=== PATIENT | male | born 1955 | race African-American/Black ===

== ENCOUNTER 2018-10-02 12:08 | Outpatient (CLI) | payer BC ==
[2018-10-02 12:31] LABS: #Basophils 0.1 thou/uL (0.0-0.2); #Eosinphils 0.1 thou/uL (0.0-0.7); #Lymphocytes 1.8 thou/uL (1.20-3.40); #Monocytes 0.6 thou/uL (0.11-0.59); #Neutrophils 5.4 thou/uL (1.40-6.50); %Eosinophils 1.1 % (0.0-10.0); %Lymphocytes 22.5 % (21.0-51.0); %Monocytes 7.3 % (0.0-10.0); %Neutrophils 68.1 % (42.0-75.0); Hemoglobin 12.6 g/dL (14.0-18.0); Mean Corpuscular HGB CONC 32.1 g/dL (32.0-36.0); Mean Corpuscular Hemoglobin 29.2 pg (27.0-31.0); Mean Platelet Volume 6.9 fL (7.4-10.4); Platelet Count 188 thou/uL (130-400); Red Blood Cell (RBC) Count 4.31 mill/uL (4.70-6.10); White Blood Cell (WBC) Count 7.9 thou/uL (4.8-10.8)
[2018-10-02 12:50] LABS: Anion Gap 14 mmol/L (10-20); BUN (Urea Nitrogen) 18 mg/dL (8.4-25.7); Calc. Creatinine Clearance 0 mL/min (70-130); Carbon Dioxide 23 mmol/L (23-31); Chloride 105 mmol/L (98-107); Estimated GFR-MDRD 69; Potassium 4.2 mmol/L (3.5-5.1); Sodium 138 mmol/L (136-145)
[2018-10-02 12:51] LABS: ALT (SGPT) 9 U/L (8-55); AST (SGOT) 15 U/L (5-34); Albumin 3.8 g/dL (3.4-4.8); Alkaline Phosphatase 96 U/L (40-150); Bilirubin, Total 0.3 mg/dL (0.2-1.2); Calcium 8.7 mg/dL (7.8-10.44); Globulin 2.5 g/dL (2.4-3.5); Glucose 159 mg/dL (80-115); Lipase 23 U/L (8-78); Protein, Total 6.3 g/dL (5.8-8.1)
[2018-10-03 16:58] LABS: Hemoglobin A1c 5.4 % (4.0-6.0)
== END 2018-10-02 12:09 | disposition home or self-care (01) ==
LOC: MADLAB 12:08
PROVIDERS: ATTEND Family Medicine
DX: R74.8 Abnormal levels of other serum enzymes (principal); R10.13 Epigastric pain; R10.12 Left upper quadrant pain
CPT/HCPCS: 36415; 80053; 82150; 83036; 83690; 85025

== ENCOUNTER 2019-05-06 14:59 | Outpatient (CLI) | payer OTHER ==
--- NOTE | 2019-05-06 15:34 | RAD ---
PA AND LATERAL CHEST: 05/06/19 HISTORY: Follow-up of pneumonia. COMPARISON: 04/25/19 exam. Heart size and mediastinum are within normal limits. Blunting to the left costophrenic angle is again demonstrated. There is some parenchymal change in the left lower lobe. These changes are stable. IMPRESSION: Stable pleural and parenchymal changes in the left base. This may be chronic change. POS: [facility]
== END 2019-05-06 15:00 | disposition home or self-care (01) ==
LOC: MADRAD 14:59
PROVIDERS: ATTEND Nurse Practitioner Family
DX: J18.9 Pneumonia, unspecified organism (principal); R07.89 Other chest pain; R06.02 Shortness of breath; J98.4 Other disorders of lung
CPT/HCPCS: 71046